=== PATIENT | male | born 1980 | race Caucasian/White ===

== ENCOUNTER → 2017-03-12 | Outpatient (CLI) | payer OTHER ==
--- NOTE | 2017-03-12 16:42 | Diagnostic Imaging Report ---
PA and lateral views of the chest Indication: Cough Findings: The lungs are clear. The heart size is normal. There is no effusion or pneumothorax The mediastinum and arabella appear unremarkable. Impression: Unremarkable study. Dictated by: Dictated on workstation # [id number]
== END ==
LOC: RAD 16:20
PROVIDERS: ATTEND Family Medicine
DX: R05 Cough; J18.9 Pneumonia, unspecified organism
CPT/HCPCS: 71020

== ENCOUNTER → 2021-04-04 | Outpatient (CLI) | payer OTHER ==
[~2021-04-04] MED LIST: RT-ALBUTEROL SULF 2.5 MG/3 ML PRE-MIX VIAL INH ONE
== END ==
LOC: RT 14:30
PROVIDERS: ATTEND Family Medicine
DX: R06.2 Wheezing (principal); R06.00 Dyspnea, unspecified; Z85.72 Personal history of non-Hodgkin lymphomas
CPT/HCPCS: 94060; 94726; 94729

== ENCOUNTER → 2021-04-07 | Outpatient (CLI) | payer OTHER ==
--- NOTE | 2021-04-07 14:31 | Diagnostic Imaging Report ---
Indication: Chest tightness in patient with lymphoma PA and lateral views of the chest are obtained with comparison made to study of 03/12/2017. FINDINGS: Heart size and pulmonary vascularity are within normal limits, and the lungs are clear, bilaterally. IMPRESSION: Unremarkable chest. Dictated by: Dictated on workstation # [id number]
== END ==
LOC: RAD 14:08
PROVIDERS: ATTEND Family Medicine
DX: C85.90 Non-Hodgkin lymphoma, unspecified, unspecified site (principal); J98.4 Other disorders of lung
CPT/HCPCS: 71046

== ENCOUNTER → 2021-05-03 | Outpatient (CLI) | payer OTHER | LOC: LABNPT 06:53 | PROVIDERS: ATTEND Family Medicine | DX: Z20.822 Contact with and (suspected) exposure to COVID-19 (principal) | CPT/HCPCS: 87635 ==

== ENCOUNTER 2021-06-17 10:19 | Outpatient (CLI) | payer OTHER | END 2021-06-17 10:33 | LOC: SLEEP 10:19 | PROVIDERS: ATTEND Family Medicine | DX: G47.33 Obstructive sleep apnea (adult) (pediatric) (principal) | CPT/HCPCS: G0399 ==

== ENCOUNTER → 2021-07-12 | Outpatient (CLI) | payer OTHER | LOC: LABNPT 06:47 | PROVIDERS: ATTEND Family Medicine | DX: Z01.812 Encounter for preprocedural laboratory examination (principal); Z20.822 Contact with and (suspected) exposure to COVID-19 | CPT/HCPCS: 87635 ==

== ENCOUNTER 2021-07-14 20:27 | Outpatient (CLI) | payer OTHER | END 2021-07-15 07:00 | disposition home or self-care (01) | LOC: SLEEP 20:27 | PROVIDERS: ATTEND Family Medicine | DX: G47.33 Obstructive sleep apnea (adult) (pediatric) (principal) | CPT/HCPCS: 95811 ==